=== PATIENT | female | born 2000 | race Asian ===

== ENCOUNTER 2022-12-23 11:06 | Inpatient (IN) ==
[2022-12-23] MEDS ORDERED: Al Hydrox/Mg Hydrox/Simet LIQ 30 ML UDC PO PRN (11:08)
[2022-12-24 08:50] LABS: HDL Cholesterol 44.2 mg/dL
[2022-12-25 10:23] VITALS: BP 107/71
== END 2022-12-25 10:45 | disposition home or self-care (01) | DRG 881 ==
LOC: BSU 16:25
PROVIDERS: ADMIT Psychiatry & Neurology Psychiatry; ATTEND Psychiatry & Neurology Psychiatry

== ENCOUNTER 2023-09-01 18:54 | Inpatient (IN) ==
[2023-09-01 20:06] LABS: ABS Eosinophils 0.1 10^3/uL (0.0-0.5); ABS Lymphocytes 1.8 10^3/uL (1.0-4.8); ABS Monocytes 0.3 10^3/uL (0.0-0.9); ABS Neutrophils 4.4 10^3/uL (1.5-7.6); ABS Nucleated RBC 0.01 10^3/ul; Eosinophil % 1.5 %; Hematocrit 39.4 % (35-45); Hemoglobin 13.4 g/dL (11.5-14.3); Lymphocyte % 27.6 %; Mean Corpuscular Hemoglobin 31.1 pg (27-33); Mean Corpuscular Hgb Conc 34.1 g/dL (31-36); Mean Corpuscular Volume 91.1 fL (80-97); Mean Platelet Volume 9.5 fL (7.5-11.2); Nucleated Red Blood Cells % 0.1 %/100WBC (0.0-0.8); Platelet Count 270 10^3/uL (150-450); Red Blood Count 4.32 10^6/uL (3.63-4.92); Red Cell Distribution Width 12.4 % (12-17); White Blood Count 6.7 10^3/uL (3.8-11.8)
[2023-09-01 20:09] LABS: Urine Appearance Clear; Urine Bilirubin Negative (Negative); Urine Blood Negative (Negative); Urine Color Yellow; Urine Glucose Negative (Negative); Urine Ketones Negative (Negative); Urine Nitrite Negative (Negative); Urine Protein Trace (Negative); Urine Urobilinogen Negative (Negative)
[2023-09-01] MEDS: NS 0.9% 1000 ml BAG 1,000 ML IV ONE (20:22)
[2023-09-01 20:23] LABS: Urine Benzodiazepine Screen None Detected (None Detect); Urine Cannabinoids Screen None Detected (None Detect); Urine Opiates Screen None Detected (None Detect)
[2023-09-01 20:42] LABS: ALT 9 U/L (7-52); AST 13 U/L (13-39); Albumin/Globulin Ratio 2.2 (1-3); Alkaline Phosphatase 35 U/L (35-149); Anion Gap 9 mmol/L (2-16); Blood Urea Nitrogen 10 mg/dL (6-24); CO2 Carbon Dioxide 26 mmol/L (22-32); Calcium 10.1 mg/dL (8.6-10.3); Chloride 103 mmol/L (101-111); Creatinine, Serum 0.54 mg/dL (0.51-0.95); Globulin 2.3 g/dL (2-4); Glucose 81 mg/dL (70-100); Sodium 138 mmol/L (135-145); Total Bilirubin 0.8 mg/dL (0.2-1.0); Total Protein 7.3 g/dL (6.4-8.9); eGFR CKD-EPI 135.1 (>60)
[2023-09-01 20:44] LABS: HCG Pregnancy < 0.60 mIU/mL
[2023-09-01 20:57] LABS: Acetaminophen < 15 mcg/mL; Alcohol, S < 13 mg/dL (<13)
[2023-09-01] MEDS: Iohexol 350 (CONTRAST) 500 ML MDV IV ONE (21:07)
[2023-09-01 21:34] LABS: Salicylate < 2.50 mg/dL (<30)
[2023-09-01] MEDS ORDERED: Al Hydrox/Mg Hydrox/Simet LIQ 30 ML UDC PO PRN (23:43)
[2023-09-02] MEDS: Vitamin THERAPEUTIC TAB PO SCH (09:01)
[2023-09-03 08:39] VITALS: BP 123/74
== END 2023-09-03 11:41 | disposition home or self-care (01) | DRG 883 ==
LOC: ED 18:54 → EDHOLD 23:18 → BSU 23:44
PROVIDERS: ADMIT Psychiatry & Neurology Psychiatry; ATTEND Psychiatry & Neurology Psychiatry